=== PATIENT | male | born 1995 | race Caucasian/White ===

== ENCOUNTER → 2017-08-31 | Outpatient (CLI) | payer OTHER | END | disposition home or self-care (01) | LOC: RT 09:26 | DX: R56.9 Unspecified convulsions (principal) | CPT/HCPCS: 95816 ==

== ENCOUNTER → 2019-02-09 | Outpatient (CLI) | payer OTHER, MEDICAID ==
--- NOTE | 2019-02-09 16:49 | EEG ---
DATE OF SERVICE: 02/09/2019 EEG NUMBER: [id number]. OBJECTIVE: This is a 23-year-old male patient with history of seizure and intellectual disability. EEG was requested to evaluate seizure activity. METHODS: Twenty electrodes were applied according to the international 10-20 electrode placement system. EKG monitoring, hyperventilation, intermittent photic stimulation, monopolar and bipolar montages are routinely utilized. The record was obtained on a digital system with video monitoring. MEDICATIONS: Keppra. FINDINGS: 1. Background: The patient was recorded in the awake and drowsy states. No actual sleep state was recorded. The overall background amplitude is 10-30 microvolts. A posterior dominant rhythm of 8-9 Hz is observed. 2. Abnormalities: No specific epileptiform discharge or electrographic seizure is seen. No focal or diffuse slowing. 3. Activation: Hyperventilation was performed with good efforts and normal response. Intermittent photic stimulation was performed with photic driving. No specific epileptiform discharge or electrographic seizure induced by hyperventilation or intermittent photic stimulation. IMPRESSION: This EEG is a normal study for the awake and drowsy states. No actual sleep state was recorded. No focal, lateralizing, specific epileptiform discharge or electrographic seizure is seen. ALFONSO JUAREZ MD DR: PELON/portia JOB#: [id number] / [id number] CHAS
== END | disposition home or self-care (01) ==
LOC: RT 08:19
PROVIDERS: ATTEND Psychiatry & Neurology Neurology
DX: R56.9 Unspecified convulsions (principal)
CPT/HCPCS: 95816

== ENCOUNTER 2020-12-26 20:43 | Emergency (ER) | payer OTHER, MEDICAID ==
[~2020-12-26] VITALS: Ht 157.5 cm; Wt 59.0 kg
--- NOTE | 2020-12-26 21:46 | PHYS DOC ---
Past Medical History Past Medical History: Anxiety, Glaucoma, Seizure, Other Additional Past Medical Histor: cataract Past Surgical History: Tonsillectomy, Other Additional Past Surgical Histo: G-tube placement and removal, Smoking Status: Never Smoker Alcohol Use: None General Adult EDM: Chief Complaint: SEIZURE HPI: HPI: Patient is a 25 year old male past medical history MR anxiety and seizures presents for evaluation after an seizure. Sudden onset seizure around 2000 hrs. Patient was on the phone and suddenly had a seizure. Mother states tonic-clonic lasted approximately 5 minutes. Patient does have a past medical history seizures the night was different from previous seizures. Mother states last seizure was greater than 5 years. Patient was recently taken off his seizure medications. At the time my exam patient is tachycardic with a heart rate in the 130-140s. Patient is active and very talkative. He moves all extremities. Review of Systems: Review of Systems: Limited due to medical condition Neuro positive seizures Heart Score: C/O Chest Pain: N/A Risk Factors: Risk Factors: DM, Current or recent (<one month) smoker, HTN, HLP, family history of CAD, obesity. Risk Scores: Score 0 - 3: 2.5% MACE over next 6 weeks - Discharge Home Score 4 - 6: 20.3% MACE over next 6 weeks - Admit for Clinical Observation Score 7 - 10: 72.7% MACE over next 6 weeks - Early Invasive Strategies Current Medications: Current Medications Medications (Trade) Dose Ordered Sig/Beau Start Time Stop Time Status Last Admin Dose Admin Levetiracetam (Keppra) 500 mg BID 12/26/20 22:00 Lorazepam (Ativan) 1 mg 1X ONCE 12/26/20 22:00 12/26/20 22:01 Sodium Chloride 1,000 ml @ 1,000 mls/hr 1X ONCE 12/26/20 22:00 12/26/20 22:59 Allergies: Allergies: Allergies Coded Allergies Type Severity Reaction Last Updated Verified No Known Drug Allergies 12/26/20 No Physical Exam: PE: General: alert, no acute distress. Skin: warm, dry and intact. Head:: Normocephalic, atraumatic. Neck: Trachea midline. Eyes: EOMI, Normal conjunctiva, No drainage CARDIOVASCULAR: Tachycardic RESPIRATORY: No respiratory distress Back: Full range of motion. MUSCULOSKELETAL: Full range of motion of bilateral upper and lower extremities. GASTROINTESTINAL: Abdomen soft without rebound or guarding. NEUROLOGICAL: Alert No neurological deficits observed Psychiatric: Cooperative. Normal judgment Current Patient Data: Vital Signs: Vital Signs Date Time Temp Pulse Resp B/P (MAP) Pulse Ox O2 Delivery O2 Flow Rate FiO2 12/26/20 20:50 98.5 145 20 162/87 (112) 100 Room Air 98.5 EKG: EKG: EKG performed at 2051 sinus tachycardia heart rate 141 [] Radiology/Procedures: Radiology/Procedures: [] Course & Med Decision Making: Course & Med Decision Making Pertinent Labs and Imaging studies reviewed. (See chart for details) [] Patient was evaluated for chief complaint. Work-up consisted of laboratory analysis and EKG. Results reviewed and discussed with patients other. Patient's lab with no acute abnormalities EKG was sinus tachycardic. Treatment included IV fluids Ativan and Keppra. Patient's heart rate improved to the 130s. Discussed patient's baseline heart rate with mother and she is unaware. She does state patient is very anxious at this time. And is in no acute distress he is very active and talkative. I suspect tachycardia is related to patient's anxiety. No previous vital signs available for review. Patient discharged home with prescription for Keppra. Mother states patient has upcoming follow-up regarding change to current medications. Advised mother discussed with neurology if they want to keep patient on Keppra. Haylee Disclaimer: Haylee Disclaimer: This electronic medical record was generated, in whole or in part, using a voice recognition dictation system. Departure Departure Impression: Primary Impression: Seizure Additional Impressions: Anxiety Tachycardia Disposition: 01 HOME / SELF CARE / HOMELESS Condition: STABLE Referrals: JANET GOTTI MD (PCP) Patient Instructions: Anxiety and Panic Attacks, Nonspecific Tachycardia, Seizure, Adult Scripts Levetiracetam (KEPPRA) 500 Mg Tablet 1 TAB PO BID for 30 Days, #60 TAB 0 Refills Prov: TIMUR TERESA DO 12/26/20 TIMUR TERESA I DO December 26, 2020 21:46
[2020-12-26] MEDS ORDERED: levETIRAcetam 500 MG TABLET PO SCH (22:00)
[2020-12-26] MEDS ORDERED: IV NORMAL SALINE 1000ML BAG 1,000 ML IV ONE (22:00)
[2020-12-26 22:02] LABS: BASO # 0.1 x10^3/uL (0.0-0.2); BASO % 1 % (0-3); EOS # 0.1 x10^3/uL (0.0-0.7); EOS % 1 % (0-3); HEMATOCRIT 46.1 % (39.0-53.0); HEMOGLOBIN 15.8 g/dL (13.0-17.5); LYMPH # 1.4 x10^3/uL (1.0-4.8); LYMPH % 13 % (24-48); MEAN CORPUSCULAR HEMOGLOBIN 30 pg (25-35); MEAN CORPUSCULAR HGB CONC 34 g/dL (31-37); MEAN CORPUSCULAR VOLUME 86 fL (79-100); MONO # 0.7 x10^3/uL (0.0-1.1); MONO % 6 % (0-9); NEUT # 8.6 x10^3/uL (1.8-7.7); NEUT % 80 % (31-73); PLATELET COUNT 270 x10^3/uL (140-400); RED BLOOD COUNT 5.37 x10^6/uL (4.30-5.70); RED CELL DISTRIBUTION WIDTH 12.6 % (11.5-14.5); WHITE BLOOD COUNT 10.8 x10^3/uL (4.0-11.0)
[2020-12-26 22:21] LABS: CALCIUM 9.3 mg/dL (8.5-10.1); CREATININE 0.9 mg/dL (0.7-1.3); GFR 102.8; POTASSIUM 3.5 mmol/L (3.5-5.1)
[2020-12-26 22:28] LABS: ALBUMIN 5.1 g/dL (3.4-5.0); ALBUMIN/GLOBULIN RATIO 2.1 (1.0-1.7); TOTAL BILIRUBIN 0.4 mg/dL (0.2-1.0); TOTAL PROTEIN 7.5 g/dL (6.4-8.2)
[2020-12-26 22:47] VITALS: BP 160/85
[2020-12-26] MEDS ORDERED: LEVE500T56 PO (23:01)
== END 2020-12-26 23:20 | disposition home or self-care (01) ==
LOC: ER 20:43
DX: R56.9 Unspecified convulsions (principal); F41.9 Anxiety disorder, unspecified; R00.0 Tachycardia, unspecified
CPT/HCPCS: 36415; 80053; 85025; 93005; 96361; 96374; 99285; J2060; J7030

== ENCOUNTER 2021-04-26 08:42 | Outpatient (CLI) | payer OTHER, MEDICAID ==
[~2021-04-26 08:42] MED LIST: BRIM5DRO3 EACHEYE; FLUO40CA2 PO; GABA-585 PO; GABA300C18 PO; GABA600T7 PO; GLYC2TAB4 PO; IV RINGERS,LACTATED 1000ML 1,000 ML IV SCH; LEVE500T56 PO; LEVE750T41 PO; LORA-434 PO; MIDA5SPR NS
[2021-04-26] MEDS ORDERED: LIDOCAINE 2% PF 5 ML VIAL. ONE (08:51)
[2021-04-26] MEDS ORDERED: MIDAZOLAM HCL/PF 2 MG/2 ML VIAL. ONE (08:51)
[2021-04-26] MEDS ORDERED: PROPOFOL 10 MG/ML (20ML) VIAL. IV ONE (08:51)
[2021-04-26] MEDS ORDERED: KETAMINE HCL IN NACL, ISO-OSM 50 MG/5 ML SYRINGE ONE (08:52)
[2021-04-26 10:08] VITALS: BP 146/90
--- NOTE | 2021-04-26 10:36 | RAD ---
EXAMINATION: MRI BRAIN WO CLINICAL HISTORY: Seizure TECHNIQUE: Multiplanar multisequential images obtained through the brain without intravenous contrast . COMPARISON: None FINDINGS: Acute Change: No evidence of restricted diffusion to suggest an acute infarct. Hemorrhage: No evidence of acute intracranial hemorrhage. Mass Lesion/Mass Effect: No evidence of intracranial mass or extra-axial fluid collection. No signifi cant mass effect. Chronic Change: White matter signal within normal limits for age. Parenchyma: No significant volume loss for age. Parenchymal signal and morphology otherwise within no rmal limits. Ventricles: Normal caliber and morphology. Skull Base: Hypothalamic and pituitary regions grossly unremarkable. Craniocervical junction within n ormal limits. No evidence of suspicious marrow replacement process. Vasculature: Large vessel and dural venous sinus flow voids within normal limits. Other: Small mucous retention cyst in the right maxillary sinus. Asymmetric increased T1 and T2 signa l in the region of the right mastoid air cells, favoring hypopneumatization of the right mastoid air cells over air cells filled with proteinaceous fluid. Small deformed left globe. Orbits and extracran ial soft tissues otherwise unremarkable. IMPRESSION: No evidence of acute intracranial abnormality or intracranial mass. Electronically signed by: Danny Street DO (04/26/2021 10:33 AM) [facility]
== END 2021-04-26 10:29 | disposition home or self-care (01) ==
LOC: MRI 08:42
PROVIDERS: ATTEND Nurse Practitioner Family
DX: J34.1 Cyst and mucocele of nose and nasal sinus (principal); R56.9 Unspecified convulsions
CPT/HCPCS: 70551; J2250; J2704